=== PATIENT | male | born 1950 | race Caucasian/White ===

== ENCOUNTER 2017-03-10 16:30 | Outpatient (CLI) | payer MEDICARE ==
[2017-03-10 18:51] LABS: MONOCYTES # (AUTO) 0.7 10^3/uL (0.0-1.0); NEUTROPHILS # (AUTO) 5.2 10^3/uL (1.5-6.6)
[2017-03-10 18:56] LABS: BASOPHILS % (AUTO) 0.4 %; EOSINOPHILS # (AUTO) 0.4 10^3/uL (0.0-0.7); EOSINOPHILS % (AUTO) 3.9 %; HCT - HEMATOCRIT 41.9 % (42.0-52.0); HGB - HEMOGLOBIN 14.3 g/dL (14.0-18.0); LYMPHOCYTES # (AUTO) 2.6 10^3/uL (1.5-3.5); LYMPHOCYTES % (AUTO) 29.5 %; MEAN CORPUSCULAR HEMOGLOBIN 31.2 pg (27.0-31.0); MEAN CORPUSCULAR HGB CONC 34.1 g/dL (32.0-36.0); MEAN CORPUSCULAR VOLUME 91.5 fL (80.0-94.0); MEAN PLATELET VOLUME 9.7 fL (7.4-11.4); MONOCYTES % (AUTO) 7.6 %; NEUTROPHILS % (AUTO) 58.6 %; RED BLOOD COUNT 4.58 10^6/uL (4.70-6.10); RED CELL DISTRIBUTION WIDTH 13.1 % (12.0-15.0); UNCORRECTED WHITE BLOOD COUNT 8.9 x10^3/uL; WHITE BLOOD COUNT 8.9 x10^3/uL (4.8-10.8)
[2017-03-10 19:10] LABS: ALBUMIN/GLOBULIN RATIO 1.4 (1.0-2.2); BILIRUBIN,TOTAL 1.5 mg/dL (0.2-1.0); CREATININE 0.8 mg/dL (0.6-1.2); POTASSIUM 4.5 mmol/L (3.5-5.0); TOTAL PROTEIN 6.5 g/dL (6.7-8.2)
[2017-03-10 19:36] LABS: HEMOGLOBIN A1C 2.22 g/dL
== END 2017-03-10 16:31 | disposition home or self-care (01) ==
LOC: LAB.R 16:30
PROVIDERS: ATTEND Internal Medicine
DX: E10.9 Type 1 diabetes mellitus without complications (principal); Z13.9 Encounter for screening, unspecified; Z72.89 Other problems related to lifestyle; I95.9 Hypotension, unspecified
CPT/HCPCS: 80053; 83036; 85025; 86803

== ENCOUNTER 2018-03-02 14:21 | Outpatient (CLI) | payer MEDICARE ==
--- NOTE | 2018-03-02 15:14 | XRAY Report ---
Procedure Date: 03/02/2018 Accession Number: [id number] / [id number] Procedure: XR - Chest 2 View X-Ray CPT Code: 33195 FULL RESULT: EXAM: Chest 2 View X-Ray DATE: 03/02/2018 3:01 PM CLINICAL HISTORY: DYSPNEA,COCCYGEAL PAIN COMPARISON: None. TECHNIQUE: 2 views. FINDINGS: Lung volumes are low which exacerbates the apparent size of the cardiomediastinal silhouette. There is bibasilar opacification with bilateral small pleural effusion. Additionally, there is central vascular congestion with curly B lines as well as widening of the vascular pedicle, pulmonary edema. No pneumothorax. IMPRESSION: Pulmonary edema with bibasilar consolidation and small bilateral pleural effusions with possible cardiomegaly. This radiographic configuration is nonspecific but suggestive of heart failure with volume overload. Basilar pneumonia is not excluded. RADIA
--- NOTE | 2018-03-02 15:16 | XRAY Report ---
Procedure Date: 03/02/2018 Accession Number: [id number] / [id number] Procedure: XR - Sacrum/Coccyx CPT Code: FULL RESULT: EXAM: Sacrum/Coccyx DATE: 03/02/2018 3:01 PM CLINICAL HISTORY: DYSPNEA,COCCYGEAL PAIN COMPARISON: None. TECHNIQUE: AP and lateral views of the sacrum/coccyx. FINDINGS: There is a fracture of the distal coccyx, best seen on the lateral view. The sacroiliac joints are symmetric. Overlying soft tissues are unremarkable. IMPRESSION: Coccygeal fracture. RADIA
[2018-03-02 16:31] LABS: BASOPHILS % (AUTO) 0.6 %; EOSINOPHILS # (AUTO) 0.5 10^3/uL (0.0-0.7); EOSINOPHILS % (AUTO) 6.6 %; HGB - HEMOGLOBIN 13.9 g/dL (14.0-18.0); LYMPHOCYTES # (AUTO) 2.1 10^3/uL (1.5-3.5); LYMPHOCYTES % (AUTO) 29.3 %; MEAN CORPUSCULAR HEMOGLOBIN 31.6 pg (27.0-31.0); MEAN CORPUSCULAR HGB CONC 34.1 g/dL (32.0-36.0); MEAN CORPUSCULAR VOLUME 92.6 fL (80.0-94.0); MEAN PLATELET VOLUME 8.3 fL (7.4-11.4); MONOCYTES # (AUTO) 0.7 10^3/uL (0.0-1.0); MONOCYTES % (AUTO) 9.4 %; NEUTROPHILS # (AUTO) 3.8 10^3/uL (1.5-6.6); NEUTROPHILS % (AUTO) 54.1 %; PLT - PLATELET COUNT 181 10^3/uL (130-450); RED BLOOD COUNT 4.39 10^6/uL (4.70-6.10); RED CELL DISTRIBUTION WIDTH 12.9 % (12.0-15.0); WHITE BLOOD COUNT 7.1 x10^3/uL (4.8-10.8)
[2018-03-02 16:41] LABS: ALBUMIN 3.5 g/dL (3.2-5.5); ALBUMIN/GLOBULIN RATIO 1.3 (1.0-2.2); BILIRUBIN,TOTAL 1.6 mg/dL (0.2-1.0); CALCIUM 8.4 mg/dL (8.5-10.3); CREATININE 0.5 mg/dL (0.6-1.2); TOTAL PROTEIN 6.2 g/dL (6.7-8.2)
== END 2018-03-02 14:22 | disposition home or self-care (01) ==
LOC: DI 14:21
PROVIDERS: ATTEND Physician Assistant Medical
DX: R91.8 Other nonspecific abnormal finding of lung field (principal); I50.1 Left ventricular failure, unspecified; S32.2XXA Fracture of coccyx, initial encounter for closed fracture
CPT/HCPCS: 36415; 71046; 72220; 80053; 83880; 84443; 85025

== ENCOUNTER 2018-03-07 07:58 | Outpatient (CLI) | payer MEDICARE | END 2018-03-07 07:59 | disposition home or self-care (01) | LOC: DI 07:58 | PROVIDERS: ATTEND Physician Assistant Medical | DX: I50.9 Heart failure, unspecified (principal); I51.7 Cardiomegaly; I34.0 Nonrheumatic mitral (valve) insufficiency | CPT/HCPCS: 93306 ==

== ENCOUNTER 2018-03-09 10:40 | Outpatient (CLI) | payer MEDICARE ==
[2018-03-09 14:29] LABS: CALCIUM 8.7 mg/dL (8.5-10.3); CREATININE 0.6 mg/dL (0.6-1.2)
== END 2018-03-09 10:41 | disposition home or self-care (01) ==
LOC: LAB.R 10:40
PROVIDERS: ATTEND Internal Medicine
DX: I50.9 Heart failure, unspecified (principal)
CPT/HCPCS: 36415; 80048; 83880

== ENCOUNTER 2018-03-21 10:15 | Outpatient (CLI) | payer MEDICARE ==
[2018-03-21 13:18] LABS: CREATININE 0.6 mg/dL (0.6-1.2)
== END 2018-03-21 10:16 | disposition home or self-care (01) ==
LOC: LAB.R 10:15
PROVIDERS: ATTEND Internal Medicine
DX: I50.9 Heart failure, unspecified (principal)
CPT/HCPCS: 80048

== ENCOUNTER 2018-03-24 08:00 | Outpatient (CLI) | payer MEDICARE ==
[2018-03-24 13:41] LABS: CALCIUM 8.7 mg/dL (8.5-10.3); CREATININE 0.6 mg/dL (0.6-1.2)
== END 2018-03-24 08:01 | disposition home or self-care (01) ==
LOC: LAB.R 08:00
PROVIDERS: ATTEND Internal Medicine Cardiovascular Disease
DX: I50.22 Chronic systolic (congestive) heart failure (principal)
CPT/HCPCS: 80048

== ENCOUNTER 2018-06-03 08:23 | Outpatient (CLI) | payer MEDICARE ==
[2018-06-03 15:10] LABS: CALCIUM 8.8 mg/dL (8.5-10.3); CREATININE 0.6 mg/dL (0.6-1.2)
== END 2018-06-03 08:24 | disposition home or self-care (01) ==
LOC: LAB.R 08:23
PROVIDERS: ATTEND Internal Medicine Cardiovascular Disease
DX: I50.22 Chronic systolic (congestive) heart failure (principal)
CPT/HCPCS: 80048

== ENCOUNTER 2018-07-11 08:00 | Outpatient (CLI) | payer MEDICARE ==
[2018-07-11 14:20] LABS: CALCIUM 8.8 mg/dL (8.5-10.3); CREATININE 0.7 mg/dL (0.6-1.2)
== END 2018-07-11 23:59 | disposition home or self-care (01) ==
LOC: LAB.R 08:00
PROVIDERS: ATTEND Internal Medicine Cardiovascular Disease
DX: I50.22 Chronic systolic (congestive) heart failure (principal)
CPT/HCPCS: 80048

== ENCOUNTER 2019-01-09 09:17 | Outpatient (CLI) | payer MEDICARE ==
[2019-01-09 09:36] LABS: BASOPHILS # (AUTO) 0.1 10^3/uL (0.0-0.1); BASOPHILS % (AUTO) 0.7 %; EOSINOPHILS # (AUTO) 0.6 10^3/uL (0.0-0.7); EOSINOPHILS % (AUTO) 5.7 %; HGB - HEMOGLOBIN 14.3 g/dL (14.0-18.0); LYMPHOCYTES # (AUTO) 2.7 10^3/uL (1.5-3.5); LYMPHOCYTES % (AUTO) 25.4 %; MEAN CORPUSCULAR HEMOGLOBIN 30.9 pg (27.0-31.0); MEAN CORPUSCULAR VOLUME 90.9 fL (80.0-94.0); MEAN PLATELET VOLUME 8.7 fL (7.4-11.4); MONOCYTES # (AUTO) 0.7 10^3/uL (0.0-1.0); MONOCYTES % (AUTO) 6.3 %; NEUTROPHILS # (AUTO) 6.5 10^3/uL (1.5-6.6); NEUTROPHILS % (AUTO) 61.9 %; PLT - PLATELET COUNT 209 10^3/uL (130-450); RED BLOOD COUNT 4.64 10^6/uL (4.70-6.10); RED CELL DISTRIBUTION WIDTH 13.3 % (12.0-15.0); WHITE BLOOD COUNT 10.4 x10^3/uL (4.8-10.8)
[2019-01-09 09:51] LABS: ALBUMIN 3.7 g/dL (3.2-5.5); ALBUMIN/GLOBULIN RATIO 1.2 (1.0-2.2); BILIRUBIN,TOTAL 1.7 mg/dL (0.2-1.0); CREATININE 0.8 mg/dL (0.6-1.2); TOTAL PROTEIN 6.9 g/dL (6.7-8.2)
[2019-01-09 09:56] LABS: HB2 TOTAL 16.1 g/dL; HEMOGLOBIN A1C 1.66 g/dL; HEMOGLOBIN A1C % 11.6 % (4.6-6.2)
[2019-01-09 10:30] LABS: THYROID STIMULATING HORMONE 4.27 uIU/mL (0.34-5.60)
[2019-01-09 10:33] LABS: FREE T4 (FREE THYROXINE) 0.68 ng/dL (0.58-1.64)
== END 2019-01-09 09:18 | disposition home or self-care (01) ==
LOC: LAB 09:17
PROVIDERS: ATTEND Family Medicine
DX: I50.9 Heart failure, unspecified (principal); E10.9 Type 1 diabetes mellitus without complications
CPT/HCPCS: 36415; 80053; 83036; 83880; 84439; 84443; 84481; 85025

== ENCOUNTER 2019-03-17 16:18 | Outpatient (CLI) | payer MEDICARE ==
[2019-03-17 16:45] LABS: CREATININE 0.7 mg/dL (0.6-1.2)
== END 2019-03-17 16:19 | disposition home or self-care (01) ==
LOC: LAB 16:18
PROVIDERS: ATTEND Internal Medicine Cardiovascular Disease
DX: I42.8 Other cardiomyopathies (principal)
CPT/HCPCS: 36415; 80048

== ENCOUNTER 2019-10-03 16:24 | Outpatient (CLI) | payer MEDICARE ==
[2019-10-03 16:41] LABS: BASOPHILS # (AUTO) 0.1 10^3/uL (0.0-0.1); BASOPHILS % (AUTO) 0.7 %; EOSINOPHILS # (AUTO) 0.7 10^3/uL (0.0-0.7); HGB - HEMOGLOBIN 13.5 g/dL (14.0-18.0); LYMPHOCYTES # (AUTO) 2.2 10^3/uL (1.5-3.5); LYMPHOCYTES % (AUTO) 19.1 %; MEAN CORPUSCULAR HEMOGLOBIN 32.1 pg (27.0-31.0); MEAN CORPUSCULAR HGB CONC 34.3 g/dL (32.0-36.0); MEAN CORPUSCULAR VOLUME 93.6 fL (80.0-94.0); MEAN PLATELET VOLUME 10.3 fL (7.4-11.4); MONOCYTES % (AUTO) 8.6 %; NEUTROPHILS # (AUTO) 7.3 10^3/uL (1.5-6.6); NEUTROPHILS % (AUTO) 65.2 %; PLT - PLATELET COUNT 190 10^3/uL (130-450); RED BLOOD COUNT 4.21 10^6/uL (4.70-6.10); RED CELL DISTRIBUTION WIDTH 12.7 % (12.0-15.0); WHITE BLOOD COUNT 11.3 x10^3/uL (4.8-10.8)
[2019-10-03 17:04] LABS: BUN - BLOOD UREA NITROGEN 16 mg/dL (6-20); CALCIUM 8.9 mg/dL (8.5-10.3); CARBON DIOXIDE - CO2 28 mmol/L (21-32); CHLORIDE 103 mmol/L (101-111); CHOL/HDL RATIO 3.5 (<5.0); CHOLESTEROL 111 mg/dL; CREATININE 0.7 mg/dL (0.6-1.2); GFR - MDRD 111 (>89); GLUCOSE 250 mg/dL (70-100); HDL CHOLESTEROL 32 mg/dL; LDL CHOLESTEROL,CALCULATED 59 mg/dL; LDL/HDL RATIO 1.8 (<3.6); SODIUM 141 mmol/L (135-145); VLDL CHOLESTEROL 20 mg/dL
[2019-10-03 17:05] LABS: HB2 TOTAL 13.7 g/dL; HEMOGLOBIN A1C 1.04 g/dL; HEMOGLOBIN A1C % 9.1 % (4.6-6.2)
== END 2019-10-03 16:25 | disposition home or self-care (01) ==
LOC: LAB 16:24
PROVIDERS: ATTEND Internal Medicine Cardiovascular Disease
DX: I42.8 Other cardiomyopathies (principal); E11.8 Type 2 diabetes mellitus with unspecified complications; Z79.4 Long term (current) use of insulin
CPT/HCPCS: 36415; 80048; 80061; 83036; 83721; 85025

== ENCOUNTER 2020-11-05 09:45 | Outpatient (CLI) | payer MEDICARE ==
[2020-11-05 10:05] LABS: BASOPHILS # (AUTO) 0.1 10^3/uL (0.0-0.1); BASOPHILS % (AUTO) 0.6 %; EOSINOPHILS # (AUTO) 0.7 10^3/uL (0.0-0.7); EOSINOPHILS % (AUTO) 6.8 %; HCT - HEMATOCRIT 38.8 % (42.0-52.0); HGB - HEMOGLOBIN 12.7 g/dL (14.0-18.0); LYMPHOCYTES # (AUTO) 2.3 10^3/uL (1.5-3.5); MEAN CORPUSCULAR HEMOGLOBIN 31.2 pg (27.0-31.0); MEAN CORPUSCULAR HGB CONC 32.7 g/dL (32.0-36.0); MEAN CORPUSCULAR VOLUME 95.3 fL (80.0-94.0); MEAN PLATELET VOLUME 10.2 fL (7.4-11.4); MONOCYTES # (AUTO) 0.8 10^3/uL (0.0-1.0); MONOCYTES % (AUTO) 7.8 %; NEUTROPHILS # (AUTO) 6.2 10^3/uL (1.5-6.6); NEUTROPHILS % (AUTO) 61.4 %; PLT - PLATELET COUNT 172 10^3/uL (130-450); RED BLOOD COUNT 4.07 10^6/uL (4.70-6.10); WHITE BLOOD COUNT 10.1 x10^3/uL (4.8-10.8)
[2020-11-05 10:22] LABS: BUN - BLOOD UREA NITROGEN 19 mg/dL (6-20); CALCIUM 9.3 mg/dL (8.5-10.3); CARBON DIOXIDE - CO2 30 mmol/L (21-32); CHLORIDE 104 mmol/L (101-111); CHOLESTEROL 128 mg/dL; CREATININE 0.7 mg/dL (0.6-1.2); GFR - MDRD 111 (>89); GLUCOSE 207 mg/dL (70-100); HDL CHOLESTEROL 42 mg/dL; LDL CHOLESTEROL,CALCULATED 67 mg/dL; LDL/HDL RATIO 1.6 (<3.6); POTASSIUM 4.3 mmol/L (3.5-5.0); SODIUM 141 mmol/L (135-145); TRIGLYCERIDES 96 mg/dL; VLDL CHOLESTEROL 19 mg/dL
[2020-11-05 12:43] LABS: ESTIMATED AVERAGE GLUCOSE 194 mg/dL (70-100); HEMOGLOBIN A1c% 8.4 % (4.27-6.07)
== END 2020-11-05 09:46 | disposition home or self-care (01) ==
LOC: LAB 09:45
PROVIDERS: ATTEND Internal Medicine Cardiovascular Disease
DX: I42.8 Other cardiomyopathies (principal); E78.5 Hyperlipidemia, unspecified; E11.65 Type 2 diabetes mellitus with hyperglycemia
CPT/HCPCS: 36415; 80048; 80061; 83036; 83721; 85025

== ENCOUNTER 2020-12-27 10:50 | Outpatient (CLI) | payer MEDICARE | END 2020-12-27 23:59 | disposition home or self-care (01) | LOC: COV 10:50 | PROVIDERS: ATTEND Surgery | DX: Z01.812 Encounter for preprocedural laboratory examination (principal); L72.0 Epidermal cyst; E11.9 Type 2 diabetes mellitus without complications; Z79.4 Long term (current) use of insulin; Z20.822 Contact with and (suspected) exposure to COVID-19 ==

== ENCOUNTER 2021-01-01 06:23 | Day surgery (SDC) | payer MEDICARE ==
[2021-01-01] MEDS ORDERED: LACTATED RINGERS 1,000 ML IV ONE ×2 (06:29→08:22)
[2021-01-01] MEDS ORDERED: KETAMINE 500 MG/10 ML VIAL ONE (07:03)
[2021-01-01] MEDS ORDERED: fentaNYL 100 MCG/2 ML VIAL ONE (07:03)
[2021-01-01] MEDS ORDERED: MIDAZOLAM 2 MG/2 ML VIAL ONE (07:03)
[2021-01-01] MEDS ORDERED: LIDOCAINE MPF 2%-EPI 1:200000 20 ML VIAL ONE (07:04)
[2021-01-01] MEDS ORDERED: BUPIVACAINE 0.25% PF 30 ML VIAL ONE (07:04)
--- NOTE | 2021-01-01 07:14 | ANESTHESIA ---
Pre-Anesthesia VS, & Labs - Diagnosis neck mass - Procedure neck mass excision Vital Signs: Temp Pulse Resp BP Pulse Ox 36.2 C L 87 15 119/79 98 01/01/21 06:37 01/01/21 06:37 01/01/21 06:37 01/01/21 06:37 01/01/21 06:37 Height: 5 ft 9 in Weight (kg): 121.2 kg Body Mass Index: 39.4 BMI Classification: Obese - NPO >8 hours Home Medications and Allergies Atorvastatin Calcium 80 mg PO QPM 10/08/14 Insulin Lispro [Humalog] 50 - 55 units SQ TIDWM 10/08/14 DULoxetine [Cymbalta] 60 mg PO DAILY 08/07/20 Gabapentin [Neurontin] 400 mg PO BID 08/07/20 Insulin Glargine [Lantus Solostar] 50 unit SQ QPM 08/07/20 Lisinopril [Zestril] 2.5 mg PO DAILY 08/07/20 Metoprolol Succinate [Toprol Xl] 50 mg PO BID 08/07/20 Semaglutide [Ozempic] 0.25 mg SQ OAW 08/07/20 Spironolactone [Aldactone] 25 mg PO DAILY 08/07/20 Allergies/Adverse Reactions: Allergies Allergy/AdvReac Type Severity Reaction Status Date / Time Sulfa (Sulfonamide Allergy Respiratory Verified 01/01/21 06:54 Antibiotics) Anes History & Medical History - Anesthetic History Anesthesia Complications: reports: No previous complications Family history of Anesthesia Complications: Denies Family history of Malignant Hyperthermia: Denies - Medical History Cardiovascular: reports: Hypertension, High cholesterol Pulmonary: reports: None Gastrointestinal: reports: None Urinary: reports: None Musculoskeletal: reports: Osteoarthritis, Chronic back pain Endocrine/Autoimmune: reports: Type 2 diabetes Skin: reports: None Smoking Status: Never smoker - Surgical History General: reports: Colonoscopy Exam General: Alert, Oriented x3 Dental: WNL Mouth Openin Fingerbreadth Neck Mobility: Reduced Mallampati classification: III Thyromental Distance: less than 4 cm Respiratory: Lungs clear Cardiovascular: Regular rate Abdomen: Normal bowel sounds Extremities: No clubbing Neurological: Normal gait Mental/Cognitive Status: Alert/Oriented X3 Cognitive Status: Within normal limits Plan Anesthesia Type: Total IV Consent for Procedure(s) Verified and Reviewed: Yes Code Status: Attempt Resuscitation ASA classification: 3-Severe systemic disease Is this case an emergency?: No
[2021-01-01] MEDS ORDERED: ePHEDrine 50 MG/ML VIAL IVP PRN (07:22)
[2021-01-01] MEDS ORDERED: MORPHINE 2 MG/ML CARPUJECT IVP PRN (07:22)
[2021-01-01] MEDS ORDERED: NALOXONE 0.4 MG/ML VIAL IVP PRN (07:22)
[2021-01-01] MEDS ORDERED: fentaNYL 100 MCG/2 ML VIAL IVP PRN (07:22)
[2021-01-01] MEDS ORDERED: ATROPINE ABBOJECT 1 MG/10 ML SYRINGE IVP PRN (07:22)
[2021-01-01] MEDS ORDERED: HYDROmorphone 0.5 MG/0.5 ML SYRINGE IVP PRN (07:22)
[2021-01-01] MEDS ORDERED: ONDANSETRON 4 MG/2 ML VIAL IVP PRN (07:22)
[2021-01-01] MEDS ORDERED: BUPIVACAINE 0.25% PF 30 ML VIAL SUBQ ONE (07:52)
[2021-01-01] MEDS ORDERED: LIDOCAINE MPF 2%-EPI 1:200000 20 ML VIAL SUBQ ONE (07:52)
[2021-01-01] MEDS ORDERED: LACTATED RINGERS 1,000 ML IV SCH (08:00)
--- NOTE | 2021-01-01 08:21 | OPERATIVE REPORT ---
Operative Report - General Procedure Date: 01/01/21 Planned Procedure: excision epidermal inclusion cysts posterior right neck Pre-Op Diagnosis: 3cm and .5 cm epidermal inclusion cyst right posterior neck Procedure Performed: excision cysts intermediate repair 3.5 cm incision and 1 cm incision posterior right neck Post Op Diagnosis: same - Procedure Note Primary Surgeon: lorie hurst Anesthesia Technique: Local, MAC Pathology: benign not sent Estimated Blood Loss (mL): 0 Drain/Tube Type: Other (none) Findings: as above Complications: none
[2021-01-01] MEDS ORDERED: HYDROcod/ACETAM 5/325 MG TABLET PO PRN (08:22)
[2021-01-01 08:56] VITALS: BP 118/70
--- NOTE | 2021-01-01 14:53 | ANESTHESIA POST OP EVALUATION ---
Anesthesia Post Eval - Post Anesthesia Eval Vitals: Last Vital Signs Temp 36 C L 01/01/21 08:55 Pulse 78 01/01/21 08:55 Resp 16 01/01/21 08:55 BP 118/70 01/01/21 08:55 Pulse Ox 95 01/01/21 08:55 CV Function Including HR & BP: Stable Pain Control: Satisfactory Nausea & Vomiting: Negative Mental Status: Baseline Respiratory Status: Airway Patent Hydration Status: Satisfactory Anesthesia Complications: None
--- NOTE | 2021-01-17 15:12 | OPERATIVE REPORT ---
Operative Report - General Procedure Date: 01/01/21 - Other Other Information/Narrative: Operative report addendum. Patient was prepped identified brought to the operating room and placed in supine position. Monitored anesthesia care was given as well as IV sedation. He was carefully repositioned in left lateral decubitus. He was prepped and draped in a sterile fashion. Antibiotics were not given. Local anesthetic was given to the area of right posterior neck cyst. Vertical oriented elliptical incisions were made directly over both epidermal inclusion cyst. He had one epidermal inclusion cyst measuring 3 cm. This was sharply removed. Intermediate repair was performed of a 3.5 cm incision. Subcutaneous tissue was reapproximated with interrupted 3-0 Vicryl suture. Skin was closed with running 4-0 Monocryl subcuticular suture. The 0.5 cm epidermal inclusion cyst was then addressed. A 1 cm elliptical vertically oriented incision was made. The cyst was removed in its entirety with sharp dissection. Intermediate repair again performed with buried erupted 3-0 Vicryl followed by closure of the epidermis with 4-0 Monocryl. Dressing was applied. He tolerated the procedure well was awakened and brought to recovery in good condition.
== END 2021-01-01 06:24 | disposition home or self-care (01) ==
LOC: SDS 06:23
PROVIDERS: ATTEND Surgery
PROC: 0JB40ZZ Excision of Right Neck Subcutaneous Tissue and Fascia, Open Approach (ICD-10-PCS; 2021-01-01)
PROC: 0JQ40ZZ Repair Right Neck Subcutaneous Tissue and Fascia, Open Approach (ICD-10-PCS; principal; 2021-01-01 07:30)
DX: L72.0 Epidermal cyst (principal); E66.9 Obesity, unspecified; Z68.39 Body mass index [BMI] 39.0-39.9, adult
CPT/HCPCS: 11420; 11423; 12042; J7120

== ENCOUNTER 2021-11-03 11:19 | Outpatient (CLI) | payer MEDICARE ==
--- NOTE | 2021-11-03 12:09 | XRAY Report ---
PROCEDURE: Lumbar Spine Complete INDICATIONS: CHRONIC LOW BACK PAIN TECHNIQUE: 5 views of the lumbar spine were acquired. COMPARISON: None. FINDINGS: Bones: 5 [id number] vertebrae are present. There is normal bony alignment. No vertebral body compression fractures. No suspicious bony lesions. Moderate L3-L4 degenerative disc changes. Mild L1 -L2, L2-L3, oblique views demonstrate no pars defects. L4-L5 and L5-S1 degenerative disc disease. Mod erate L4-L5 and L5-S1 facet arthropathy. Mild L4-L2, L2-L3 and L3-L4 facet arthropathy. Soft tissues: Overlying bowel gas pattern is normal. No suspicious soft tissue calcifications. IMPRESSION: 1. Multilevel degenerative disc disease. 2. Multilevel facet arthropathy. 3. No fracture. No acute osseous lesion. If there is continued clinical concern for pathology, then M RI should be considered for further evaluation. Reviewed by: Rhonda Adame MD, PhD on 11/03/2021 12:08 PM PDT Approved by: Rhonda Adame MD, PhD on 11/03/2021 12:08 PM PDT Station ID: [id number]
== END 2021-11-03 11:20 | disposition home or self-care (01) ==
LOC: DI 11:19
PROVIDERS: ATTEND Family Medicine
DX: M51.36 Other intervertebral disc degeneration, lumbar region (principal); M51.37 Other intervertebral disc degeneration, lumbosacral region; M47.816 Spondylosis without myelopathy or radiculopathy, lumbar region; M47.817 Spondylosis without myelopathy or radiculopathy, lumbosacral region

== ENCOUNTER 2022-03-30 15:14 | Outpatient (CLI) | payer MEDICARE ==
--- NOTE | 2022-03-30 16:20 | MRI Report ---
PROCEDURE: Lumbar Spine W/O INDICATIONS: BILATERAL CLAUDICATION TECHNIQUE: Noncontrast sagittal T1 spin echo and T2 fast echo, sagittal STIR, axial T1 and T2 fast spin echo thr ough the lumbar spine. In cases with scoliosis, additional coronal T2 fast spin echo may be performe d. COMPARISON: 5 views of the lumbar spine dated 11/03/2021. FINDINGS: Image quality: Excellent. Alignment and Curvature: There is normal bony alignment. Bone Marrow: Marrow is of normal overall signal. 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 Compr ession deformity at the superior L1 endplate is unchanged from the study dated 11/03/2021. Spinal Cord: Conus medullaris terminates at the L1 level. Visualized cord demonstrates normal signa l and size. Paraspinous Soft Tissues: No paravertebral masses. There are likely bilateral pararenal cysts which are incompletely characterized on this limited view of the kidneys. T12-L1: Mild disc desiccation and height loss. Broad based disc bulge. Mild facet and ligamentum fla vum hypertrophy. No canal stenosis. No foraminal narrowing. L1-L2: Mild disc desiccation and height loss. Broad based disc bulge. Mild facet and ligamentum fl avum hypertrophy. No canal stenosis. Mild bilateral neural foraminal stenosis. L2-L3: Severe disc desiccation and height loss. Broad based disc bulge. Moderate facet and ligamen campos flavum hypertrophy. Epidural lipomatosis. Mild canal stenosis. Moderate bilateral neural foramina l stenosis with mild flattening of the bilateral exiting nerve roots. L3-L4: Severe disc desiccation and height loss. Severe reactive endplate changes. Severe facet and ligamentum flavum hypertrophy. Marked epidural lipomatosis. Severe canal stenosis. The canal measures 6 mm in the AP diameter. Severe bilateral neural foraminal stenosis. L4-L5: Mild disc desiccation and height loss. Broad based disc bulge. Severe facet ligamentum flavu m hypertrophy. Severe epidural lipomatosis. Severe canal stenosis. Severe bilateral neural foraminal stenosis. L5-S1: Mild disc desiccation and height loss. Broad based disc bulge. Mild canal stenosis. Mild tamela ateral foraminal stenosis. IMPRESSION: 1. Disc desiccation and height loss most severe at L2-3 and L3-4. Severe reactive endplate changes ar e also present at L3-4. 2. Epidural lipomatosis at L2-3, L3-4, and L4-5. 3. Broad-based disc bulges, facet and ligamentum flavum hypertrophy and epidural lipomatosis result i n mild canal stenosis at L2-3 and L5-S1 and severe canal stenosis at L3-4 and L4-5. 4. Severe bilateral foraminal stenosis at L3-4 and L4-5. Moderate bilateral foraminal stenosis at L2- 3. Reviewed by: Sylvia Marquis MD on 03/30/2022 4:19 PM PDT Approved by: Sylvia Marquis MD on 03/30/2022 4:19 PM PDT Station ID: [id number]
== END 2022-03-30 15:15 | disposition home or self-care (01) ==
LOC: DI 15:14
PROVIDERS: ATTEND Internal Medicine
DX: I73.9 Peripheral vascular disease, unspecified (principal); M47.815 Spondylosis without myelopathy or radiculopathy, thoracolumbar region; M51.35 Other intervertebral disc degeneration, thoracolumbar region; M47.816 Spondylosis without myelopathy or radiculopathy, lumbar region; M51.36 Other intervertebral disc degeneration, lumbar region; M48.061 Spinal stenosis, lumbar region without neurogenic claudication; E88.2 Lipomatosis, not elsewhere classified; M51.37 Other intervertebral disc degeneration, lumbosacral region; M48.07 Spinal stenosis, lumbosacral region

== ENCOUNTER 2023-11-05 08:52 | Outpatient (CLI) | payer MEDICARE | END 2023-11-05 08:53 | disposition home or self-care (01) | LOC: LAB 08:52 | PROVIDERS: ATTEND Student in an Organized Health Care Education/Training Program | DX: E11.40 Type 2 diabetes mellitus with diabetic neuropathy, unspecified (principal); Z79.4 Long term (current) use of insulin | CPT/HCPCS: 36415; 82947; 84681 ==

== ENCOUNTER 2023-12-06 11:04 | Outpatient (CLI) | payer MEDICARE ==
[2023-12-06 11:24] LABS: BASOPHILS # (AUTO) 0.1 10^3/uL (0.0-0.1); BASOPHILS % (AUTO) 0.5 %; EOSINOPHILS # (AUTO) 0.6 10^3/uL (0.0-0.7); EOSINOPHILS % (AUTO) 5.1 %; HCT - HEMATOCRIT 45.8 % (42.0-52.0); HGB - HEMOGLOBIN 14.5 g/dL (14.0-18.0); LYMPHOCYTES # (AUTO) 2.1 10^3/uL (1.5-3.5); LYMPHOCYTES % (AUTO) 17.1 %; MEAN CORPUSCULAR HGB CONC 31.7 g/dL (32.0-36.0); MEAN CORPUSCULAR VOLUME 97.9 fL (80.0-94.0); MEAN PLATELET VOLUME 10.7 fL (7.4-11.4); MONOCYTES # (AUTO) 0.9 10^3/uL (0.0-1.0); MONOCYTES % (AUTO) 7.7 %; NEUTROPHILS # (AUTO) 8.4 10^3/uL (1.5-6.6); NEUTROPHILS % (AUTO) 69.3 %; PLT - PLATELET COUNT 199 10^3/uL (130-450); RED BLOOD COUNT 4.68 10^6/uL (4.70-6.10); WHITE BLOOD COUNT 12.2 x10^3/uL (4.8-10.8)
[2023-12-06 11:41] LABS: ALBUMIN/GLOBULIN RATIO 1.3 (1.0-2.2); ALKALINE PHOSPHATASE 40 IU/L (42-121); ALT ALANINE AMINOTRANSFERASE 17 IU/L (10-60); AST ASPARTATE AMINOTRANSFERASE 13 IU/L (10-42); BILIRUBIN,TOTAL 0.9 mg/dL (0.2-1.0); BUN - BLOOD UREA NITROGEN 27 mg/dL (6-20); CALCIUM 9.9 mg/dL (8.5-10.3); CARBON DIOXIDE - CO2 29 mmol/L (21-32); CHLORIDE 105 mmol/L (101-111); CHOL/HDL RATIO 3.4 (<5.0); CHOLESTEROL 141 mg/dL; CREATININE 0.9 mg/dL (0.6-1.3); GFR - MDRD 82 (>89); GLUCOSE 134 mg/dL (74-104); HDL CHOLESTEROL 42 mg/dL; LDL CHOLESTEROL,CALCULATED 68 mg/dL; LDL/HDL RATIO 1.6 (<3.6); POTASSIUM 4.1 mmol/L (3.5-4.5); SODIUM 141 mmol/L (135-145); TRIGLYCERIDES 154 mg/dL (48-352); VLDL CHOLESTEROL 31 mg/dL
[2023-12-06 11:53] LABS: THYROID STIMULATING HORMONE 2.67 uIU/mL (0.34-5.60)
[2023-12-06 12:48] LABS: ESTIMATED AVERAGE GLUCOSE 200 mg/dL (70-100); HEMOGLOBIN A1c% 8.6 % (4.27-6.07)
[2023-12-06 14:43] LABS: CREATININE,URINE 58.6 mg/dL
[2023-12-06 14:56] LABS: MICROALBUMIN,URINE < 0.7 mg/dL
== END 2023-12-06 11:05 | disposition home or self-care (01) ==
LOC: LAB 11:04
PROVIDERS: ATTEND Family Medicine
DX: I50.1 Left ventricular failure, unspecified (principal); E11.42 Type 2 diabetes mellitus with diabetic polyneuropathy; Z79.4 Long term (current) use of insulin; E11.3213 Type 2 diabetes mellitus with mild nonproliferative diabetic retinopathy with macular edema, bilateral; I42.9 Cardiomyopathy, unspecified; I35.0 Nonrheumatic aortic (valve) stenosis
CPT/HCPCS: 36415; 80053; 80061; 82043; 82570; 83036; 83721; 83880; 84153; 84443; 85025

== ENCOUNTER 2024-03-06 15:47 | Outpatient (CLI) | payer MEDICARE ==
--- NOTE | 2024-03-07 08:45 | XRAY Report ---
PROCEDURE: Chest 2V INDICATIONS: WHEEZING,COUGH,SOB TECHNIQUE: 2 views of the chest were acquired. COMPARISON: 03/02/2018 FINDINGS: Surgical changes and devices: None. Lungs and pleura: No dense consolidation or pleural effusion. Peribronchial thickening is present. L ow lung volumes. Mediastinum: Borderline cardiomegaly. Bones and chest wall: Degenerative changes IMPRESSION: Low lung volumes. Peribronchial thickening could represent bronchitis/atypical infection. No dense ai rspace disease or pleural effusions. Reviewed by: Howard Hartley MD on 03/07/2024 8:44 AM PDT Approved by: Howard Hartley MD on 03/07/2024 8:44 AM PDT Station ID: [id number]
== END 2024-03-06 15:48 | disposition home or self-care (01) ==
LOC: DI 15:47
PROVIDERS: ATTEND Nurse Practitioner Family
DX: R06.2 Wheezing (principal); R05.1 Acute cough; R06.02 Shortness of breath; R91.8 Other nonspecific abnormal finding of lung field